=== PATIENT | female | born 1990 | race Caucasian/White ===

== ENCOUNTER 2017-08-11 14:19 | Emergency (ER) | payer BC ==
[~2017-08-11] VITALS: Ht 165.1 cm; Wt 53.2 kg
[~2017-08-11 14:19] MED LIST: DICY10CA55 PO
[2017-08-11 14:22] VITALS: TEMP 36.5; Ht 165.1 cm; Wt 53.2 kg
--- NOTE | 2017-08-11 15:05 | EMERGENCY ROOM VISIT NOTE ---
History First contact with patient: 15:02 Chief Complaint: ABDOMINAL PAIN Stated Complaint: STOMACH PAIN, MUCH WORSE WHEN STANDING OR MOVING Nursing Triage Summary: pt reports right abd pain started this am awoke feeling nauseated. denies any v/d/c/ History of Present Illness The patient is a 26 year old female who presents to the Emergency Room with complaints of nausea and abdominal pain that started this morning around 5 AM. Patient states that she woke up around 5 with some nausea, went back to sleep, then woke up again at 7 with some lower abdominal pain has been getting progressively worse throughout the day. She describes the pain as an ache, around her bellybutton and to the right lower abdomen, better with lying down and resting, worse with standing and walking around, currently rates as 4/10. She has not tried any medications for the pain. She states she has had persistent nausea throughout the day with decreased appetite, but denies any vomiting, diarrhea, blood in the stool, dysuria or urinary frequency, abnormal vaginal discharge, fevers or chills. She had a normal bowel movement this morning. While waiting in the waiting room, the patient states that she was feeling anxious, she began to feel more nausea, dizziness and a cold sweat, and states that she did pass out, which was witnessed by another visitor in the waiting room. She denies any headaches, neck pain, current dizziness, chest pain, shortness of breath, back pain, rash. She reports that she had a baby 9 months ago, and did have an IUD placed a few months ago, she has not resumed having her periods since giving . Review of Systems A complete 10 point review of systems was reviewed with the patient with pertinent positives and negatives as per history of present illness. All else were negative. Past Medical/Surgical History Medical Problems: (1) ovarian cyst Social History Smoking Status: Never Smoker Marital Status: single Occupation Status: student Current/Historical Medications Scheduled Multivit/Min/Iron/Fol Ac/Pren ( Vitamin), 1 TAB PO DAILY Ondasetron Odt (Zofran Odt), 4 MG SL Q6H Physical Exam Vital Signs Date Time Temp Pulse Resp B/P (MAP) Pulse Ox O2 Delivery O2 Flow Rate FiO2 08/11/17 19:21 72 16 102/72 100 Room Air 08/11/17 18:09 105 16 96/57 100 Room Air 08/11/17 16:40 75 16 101/72 98 Room Air 08/11/17 14:52 99 99/63 94 102/67 106 102/70 08/11/17 14:43 53 18 70/50 99 Room Air 08/11/17 14:22 36.5 119 18 119/76 100 Room Air Physical Exam CONSTITUTIONAL: No acute distress. Mildly dehydrated, but otherwise well appearing and well nourished. Alert and oriented X 4 with normal affect. HEENT: Normocephalic, atraumatic. Pupils equal, round and reactive to light, EOMI. TMs normal. Pharynx normal. Tacky mucus membranes. NECK: Supple, full active range of motion without discomfort. RESPIRATORY: Clear to auscultation bilaterally with no wheezing, crackles, rhonchi or stridor. Equal expansion bilaterally. CARDIOVASCULAR: Regular rate and rhythm with no murmurs, rubs or gallops. Normal peripheral perfusion. No edema. GASTROINTESTINAL: Mild tenderness in the periumbilical and right lower quadrant without guarding. No rebound tenderness, negative Rovsing and psoas signs. Abdomen is otherwise soft, nontender, nondistended. No palpable masses or HSM. Bowel sounds present in all quadrants. No CVA tenderness. MUSCULOSKELETAL: Full range of motion of all joints without discomfort. INTEGUMENTARY: No rash or other significant dermatologic conditions noted. NEUROLOGIC: Cranial nerves II-XII grossly intact. No focal neurologic deficits noted. Medical Decision & Procedures ER Provider Diagnostic Interpretation: CT OF THE ABDOMEN AND PELVIS WITH CONTRAST CLINICAL HISTORY: Lower abdominal pain. Evaluate for acute appendicitis. COMPARISON STUDY: CT of the abdomen and pelvis November 15, 2012. TECHNIQUE: Following IV administration of 91 mL of Optiray-320, axial images of the abdomen and pelvis were obtained from the lung bases to the proximal femurs. Images were reviewed in the axial, sagittal, and coronal planes. IV contrast was administered without complication. A dose lowering technique was utilized adhering to the principles of ALARA. Oral contrast was administered. CT DOSE: 257.73 mGy.cm FINDINGS: Lung bases are clear. The liver, adrenal glands and pancreas are normal. There is no biliary or pancreatic ductal dilatation. There is no peripancreatic or pericholecystic infiltration. Spleen is top normal for size. Several hypodense subcentimeter bilateral renal lesions likely reflect cysts. There is no hydronephrosis. A few left renal calculi measure up to 4 mm. A 4 mm inferior left pelvic calcification likely reflects a phlebolith. Evaluation of the abdomen and pelvis is difficult given a paucity of intra-abdominal fat. There is no evidence for a bowel obstruction. The appendix is normal. No free fluid is present. Intrauterine device in place. There is no lymphadenopathy. No suspicious skeletal lesions are identified. There is a left L5 pars defect without anterolisthesis. There is no pneumatosis, free air or portal venous gas. IMPRESSION: 1. No acute process within the abdomen or pelvis. Normal appendix. No bowel obstruction. 2. Apparent left colon wall thickening which is likely due to underdistention. 3. Left-sided nephrolithiasis. No hydronephrosis. A 4 mm left pelvic calcification likely reflects a phlebolith. A nonobstructing distal left ureteral calculus is considered less likely. Laboratory Results 08/11/17 16:10 Red Blood Count 4.64, Mean Corpuscular Volume 86.6, Mean Corpuscular Hemoglobin 30.6, Mean Corpuscular Hemoglobin Concent 35.3, Mean Platelet Volume 9.6, Neutrophils (%) (Auto) 71.5, Lymphocytes (%) (Auto) 20.0, Monocytes (%) (Auto) 7.9, Eosinophils (%) (Auto) 0.1, Basophils (%) (Auto) 0.4, Neutrophils # (Auto) 6.67, Lymphocytes # (Auto) 1.87, Monocytes # (Auto) 0.74, Eosinophils # (Auto) 0.01, Basophils # (Auto) 0.04 08/11/17 16:10 Test 08/11/17 15:38 08/11/17 16:10 Urine Color YELLOW Urine Appearance CLEAR (CLEAR) Urine pH 7.0 (4.5-7.5) Urine Specific [place] 1.012 (1.000-1.030) Urine Protein NEG (NEG) Urine Glucose (UA) NEG (NEG) Urine Ketones TRACE (NEG) Urine Occult Blood NEG (NEG) Urine Nitrite NEG (NEG) Urine Bilirubin NEG (NEG) Urine Urobilinogen NEG (NEG) Urine Leukocyte Esterase NEG (NEG) Urine Test NEG (NEG) White Blood Count 9.34 K/uL (4.8-10.8) Red Blood Count 4.64 M/uL (4.2-5.4) Hemoglobin 14.2 g/dL (12.0-16.0) Hematocrit 40.2 % (37-47) Mean Corpuscular Volume 86.6 fL (80-100) Mean Corpuscular Hemoglobin 30.6 pg (25-34) Mean Corpuscular Hemoglobin Concent 35.3 g/dl (32-36) Platelet Count 197 K/uL (130-400) Mean Platelet Volume 9.6 fL (7.4-10.4) Neutrophils (%) (Auto) 71.5 % Lymphocytes (%) (Auto) 20.0 % Monocytes (%) (Auto) 7.9 % Eosinophils (%) (Auto) 0.1 % Basophils (%) (Auto) 0.4 % Neutrophils # (Auto) 6.67 K/uL (1.4-6.5) Lymphocytes # (Auto) 1.87 K/uL (1.2-3.4) Monocytes # (Auto) 0.74 K/uL (0.11-0.59) Eosinophils # (Auto) 0.01 K/uL (0-0.5) Basophils # (Auto) 0.04 K/uL (0-0.2) RDW Standard Deviation 42.0 fL (36.4-46.3) RDW Coefficient of Variation 13.3 % (11.5-14.5) Immature Granulocyte % (Auto) 0.1 % Immature Granulocyte # (Auto) 0.01 K/uL (0.00-0.02) Anion Gap 7.0 mmol/L (3-11) Est Creatinine Clear Calc Drug Dose 124.5 ml/min Estimated GFR () 148.5 Estimated GFR (Non- 128.1 BUN/Creatinine Ratio 22.9 (10-20) Calcium Level 8.3 mg/dl (8.5-10.1) Total Bilirubin 0.4 mg/dl (0.2-1) Direct Bilirubin < 0.1 mg/dl (0-0.2) Aspartate Amino Transf (AST/SGOT) 19 U/L (15-37) Alanine Aminotransferase (ALT/SGPT) 30 U/L (12-78) Alkaline Phosphatase 88 U/L (45-117) Total Protein 6.3 gm/dl (6.4-8.2) Albumin 3.7 gm/dl (3.4-5.0) Lipase 124 U/L (73-393) Medications Administered Medications (Trade) Dose Ordered Sig/Alesha Route Start Time Stop Time Status Last Admin Dose Admin Sodium Chloride 1,000 ml @ 999 mls/hr Q1H1M STAT IV 08/11/17 15:31 08/11/17 16:31 DC 08/11/17 15:31 999 MLS/HR ECG Indication: syncope Medical Decision CC: Patient presenting with complaint of abdominal pain and nausea Interpretation of Labs: No leukocytosis, no anemia, no significant electrolyte abnormalities, normal renal function, normal liver enzymes and lipase. UA shows trace ketones some with mild dehydration, otherwise negative. Negative urine . Differential Diagnosis: Includes, but not limited to gastroenteritis, appendicitis, ovarian cyst, malposition of IUD, bowel obstruction, constipation , mesenteric adenitis, UTI, dehydration, syncope, vasovagal, orthostatic, dysrhythmia, electrolyte imbalance, among others. Medication Reconciliation: I attest that I have personally reviewed the patient' s current medication list. Vital signs review: I reviewed the patient's vital signs and interpret them as follows: T: Afebrile; BP: Normotensive; HR: Tachycardic; RR: Within normal limits; Pulse Ox: Within normal limits on room air. Blood pressure screening: The patient was found to have normal blood pressure on screening and does not require follow-up for repeat blood pressure check. Summary: Patient was evaluated at bedside, history and physical exam performed. Patient is alert and oriented, in no acute distress, resting calmly in the stretcher. On exam the patient has mild tenderness in the periumbilical and right lower quadrant region. Slight guarding, no rebound tenderness, negative Rovsing. Per nursing triage note, patient had a syncopal episode while waiting in the waiting room. Patient did note that she was "feeling stressed about being in the hospital" shortly before she had her syncopal episode. Review of vital signs taken shortly after patient's syncopal episode reveal hypotension and bradycardia, which appeared to be transient, consistent with a possible vasovagal episode. Patient also reports that she has had several syncopal episodes like this in the past, and says it is not unusual for her. She denies any chest pain or SOB. EKG reviewed and reveals a normal sinus rhythm and incomplete right bundle branch block. Orders were placed at bedside for labs, UA and urine , IV fluids for hydration, CT abdomen/pelvis to evaluate for appendicitis and other intra- abdominal pathology. Patient discussed with Dr. Read, who agrees with my assessment and plan. Labs reviewed as above, mild dehydration and otherwise unremarkable. CT imaging reviewed, no acute abnormality. Patient reassessed multiple times throughout ED stay, she is feeling better. Tachycardia resolved after IV fluids. Orthostatic VS are negative and she has not had any persistent dizziness or feelings of near-syncope. Re-examination of the abdomen reveals decreased tenderness. Nausea also improved , tolerating PO well. Patient was updated on all results and plan for discharge home, was encouraged to follow closely with the PCP for symptoms not resolve. She was also given strict return precautions for symptoms persist or worsen, she verbalized understanding. The patient was discharged home in stable condition and ambulatory. Impression Primary Impression: Abdominal pain Additional Impression: Nausea Departure Information Dispostion Home / Self-Care Condition GOOD Prescriptions Ondasetron Odt (ZOFRAN ODT) 4 Mg Tab 4 MG SL Q6H for Nausea, #6 TAB Prov: Waleska Decker CRNP 08/11/17 Patient Instructions ED Abdominal Pain Unkn Cause, ED Nausea Vomiting, My [facility] Additional Instructions You have been treated in the Emergency Department your Abdominal Pain. Laboratory results and imaging studies have ruled out any emergent causes for your abdominal pain which would warrant admission or surgery. You have been prescribed Zofran to be used for any nausea or vomiting. Take as prescribed. For pain control, you can use the following inep-yli-ntbeiga medicines (if >12 yo): - Regular strength (325mg/tab) Tylenol (acetaminophen) 2 tabs every 4-6 hours as needed. Do not exceed 10 tablets in a 24 hour period. Avoid taking more than 3000 mg of Tylenol per day. This includes any other sources of acetaminophen you may take on a regular basis. - Regular strength (200 mg/tab) Advil (ibuprofen) 2 tabs every 4-6 hours as needed. Do not exceed a dose of 2400 mg per day. Take with food. You may also try applying a heating pad to lower abdomen for comfort. Drink plenty of fluids to stay well hydrated. Avoid dairy, spicy foods, or other hard to digest foods until you are feeling back to normal. As with any trip to the Emergency Department, you should follow-up with your Primary Care Provider in the next few days for recheck. Return to the emergency department for persistent or worsening abdominal pain, fevers > 101.5, worsening nausea/vomiting, blood in your stool or urine, or any other concerns. Work Instructions Return To Work: 2 days Problem Qualifiers Primary Impression: Abdominal pain Abdominal location: periumbilical Qualified Codes: R10.33 - Periumbilical pain
[2017-08-11] MEDS ORDERED: PRENTAB26 PO (15:24)
[2017-08-11] MEDS ORDERED: SODIUM CHLORIDE 0.9% 1000ML 1,000 ML IV STA (15:31)
[2017-08-11] MEDS ORDERED: ONDANSETRON INJ 2 MG/ML 2 ML VIAL IV STA (15:31)
[2017-08-11] MEDS ORDERED: OPTIRAY 320 IV PRN (16:00)
[2017-08-11 16:03] LABS: URINE APPEARANCE CLEAR (CLEAR); URINE BILIRUBIN NEG (NEG); URINE COLOR YELLOW; URINE NITRITE NEG (NEG); URINE SPECIFIC GRAVITY 1.012 (1.000-1.030); UROBILINOGEN NEG (NEG); ZZUR CULT IF INDIC CLEAN CATCH NO
[2017-08-11 16:13] LABS: MANUAL MICROSCOPIC REQUIRED? NO; REVIEW REQ? NO
[2017-08-11 16:20] LABS: BASO % 0.4 %; BASO ABS # 0.04 K/uL (0-0.2); COMPLETE YES; EOS % 0.1 %; HEMATOCRIT 40.2 % (37-47); IG% 0.1 %; LYMPH ABS # 1.87 K/uL (1.2-3.4); MEAN CELL VOLUME 86.6 fL (80-100); MEAN CORPUSCULAR HEMOGLOBIN 30.6 pg (25-34); MEAN CORPUSCULAR HGB CONC 35.3 g/dl (32-36); MEAN PLATELET VOLUME 9.6 fL (7.4-10.4); MONO % 7.9 %; NEUT % 71.5 %; PLATELET COUNT 197 K/uL (130-400); RED BLOOD COUNT 4.64 M/uL (4.2-5.4); WHITE BLOOD COUNT 9.34 K/uL (4.8-10.8)
[2017-08-11 16:45] LABS: ALT/SGPT 30 U/L (12-78); BLOOD UREA NITROGEN 13 mg/dl (7-18); BUN/CREATININE RATIO 22.9 (10-20); CALCIUM 8.3 mg/dl (8.5-10.1); CARBON DIOXIDE 26 mmol/L (21-32); CHLORIDE 106 mmol/L (98-107); CREATININE 0.58 mg/dl (0.60-1.20); GLUCOSE 91 mg/dl (70-99); POTASSIUM 3.9 mmol/L (3.5-5.1); SODIUM 139 mmol/L (136-145)
[2017-08-11 16:48] LABS: ALKALINE PHOSPHATASE 88 U/L (45-117); AST/SGOT 19 U/L (15-37)
--- NOTE | 2017-08-11 18:37 | DIAGNOSTIC IMAGING REPORT ---
CT OF THE ABDOMEN AND PELVIS WITH CONTRAST CLINICAL HISTORY: Lower abdominal pain. Evaluate for acute appendicitis. COMPARISON STUDY: CT of the abdomen and pelvis November 15, 2012. TECHNIQUE: Following IV administration of 91 mL of Optiray-320, axial images of the abdomen and pelvis were obtained from the lung bases to the proximal femurs. Images were reviewed in the axial, sagittal, and coronal planes. IV contrast was administered without complication. A dose lowering technique was utilized adhering to the principles of ALARA. Oral contrast was administered. CT DOSE: 257.73 mGy.cm FINDINGS: Lung bases are clear. The liver, adrenal glands and pancreas are normal. There is no biliary or pancreatic ductal dilatation. There is no peripancreatic or pericholecystic infiltration. Spleen is top normal for size. Several hypodense subcentimeter bilateral renal lesions likely reflect cysts. There is no hydronephrosis. A few left renal calculi measure up to 4 mm. A 4 mm inferior left pelvic calcification likely reflects a phlebolith. Evaluation of the abdomen and pelvis is difficult given a paucity of intra-abdominal fat. There is no evidence for a bowel obstruction. The appendix is normal. No free fluid is present. Intrauterine device in place. There is no lymphadenopathy. No suspicious skeletal lesions are identified. There is a left L5 pars defect without anterolisthesis. There is no pneumatosis, free air or portal venous gas. IMPRESSION: 1. No acute process within the abdomen or pelvis. Normal appendix. No bowel obstruction. 2. Apparent left colon wall thickening which is likely due to underdistention. 3. Left-sided nephrolithiasis. No hydronephrosis. A 4 mm left pelvic calcification likely reflects a phlebolith. A nonobstructing distal left ureteral calculus is considered less likely. Electronically signed by: Nick Dumont M.D. 08/11/2017 6:36 PM Dictated Date/Time: 08/11/2017 6:24 PM
[2017-08-11] MEDS ORDERED: ONDA4TAB10 SL (19:20)
[2017-08-11 19:21] VITALS: BP 102/72; PULSE 72; O2SAT 100
== END 2017-08-11 19:45 | disposition home or self-care (01) ==
LOC: C.EDB 14:21
DX: R10.33 Periumbilical pain (principal); R11.0 Nausea; R55 Syncope and collapse; Z87.42 Personal history of other diseases of the female genital tract